=== PATIENT | male | born 1955 | race African-American/Black ===

== ENCOUNTER 2022-04-02 05:36 | Day surgery (SDC) | payer BC ==
[2022-03-31 16:23] VITALS: BMI 26.5
[2022-04-02 06:34] LABS: #Eosinphils 0.1 thou/uL (0.0-0.7); #Lymphocytes 1.5 thou/uL (1.20-3.40); #Monocytes 0.6 thou/uL (0.11-0.59); #Neutrophils 3.1 thou/uL (1.40-6.50); %Basophils 0.3 % (0.0-1.0); %Eosinophils 2.7 % (0.0-10.0); %Lymphocytes 29.1 % (21.0-51.0); %Monocytes 10.6 % (0.0-10.0); %Neutrophils 57.3 % (42.0-75.0); Mean Corpuscular Hemoglobin 28.9 pg (27.0-31.0); Mean Corpuscular Volume 93.2 fL (78.0-98.0); Mean Platelet Volume 8.4 fL (7.4-10.4); Platelet Count 280 thou/uL (130-400); RBC Distribution Width 13.1 % (11.5-14.5); White Blood Cell (WBC) Count 5.3 thou/uL (4.8-10.8)
[2022-04-02 06:41] LABS: INR-International Normal Ratio 0.9; Prothrombin Time 12.3 sec (12.0-14.7)
[2022-04-02 06:42] LABS: PTT 32.7 sec (22.9-36.1)
[2022-04-02] MEDS ORDERED: Levofloxacin 500 mg/D5W 100 ml Premix Bag ONE (06:46)
[2022-04-02 06:50] LABS: Squamous Epithelial 0-3 HPF (0-3)
[2022-04-02 06:50] LABS: Anion Gap 11 mmol/L (10-20); BUN (Urea Nitrogen) 13 mg/dL (8.4-25.7); Calc. Creatinine Clearance 94 mL/min (70-130); Calcium 9.2 mg/dL (7.8-10.44); Carbon Dioxide 28 mmol/L (23-31); Chloride 104 mmol/L (98-107); Estimated GFR 92; Glucose 93 mg/dL (80-115); Potassium 3.4 mmol/L (3.5-5.1); Sodium 140 mmol/L (136-145)
[2022-04-02] MEDS ORDERED: fentaNYL Citrate/PF 100 MCG/2 ML SYRINGE ONE (07:18)
[2022-04-02 07:34] LABS: Bacteria/HPF 2+ HPF (None Seen); WBC/HPF 21-50 HPF (0-3)
[2022-04-02] MEDS ORDERED: PROPOFOL 200 MG/20 ML VIAL ONE (07:39)
[2022-04-02] MEDS ORDERED: Lidocaine 1% MPF 2 ML VIAL ONE (07:39)
[2022-04-02] MEDS ORDERED: B & O ONE (08:05)
[2022-04-02] MEDS ORDERED: Phenazopyridine HCl 100 MG TAB ONE (08:54)
[2022-04-02] MEDS ORDERED: Morphine 2 MG/ML VIAL ONE (08:54)
[2022-04-02] MEDS ORDERED: Oxybutynin 5 MG TAB ONE (08:54)
[2022-04-02] MEDS ORDERED: hydrALAZINE 20 MG/ML VIAL ONE (09:18)
[2022-04-02] MEDS ORDERED: Morphine 4 MG/ML VIAL ONE (09:19)
[2022-04-02] MEDS ORDERED: HYDROcodone/Acetaminophen 5/325 mg Tablet ONE (09:43)
== END 2022-04-02 10:25 | disposition home or self-care (01) ==
LOC: SDC 05:36
PROVIDERS: ATTEND Urology
PROC: 0T7D8DZ Dilation of Urethra with Intraluminal Device, Via Natural or Artificial Opening Endoscopic (ICD-10-PCS; principal; 2022-04-02)
DX: C61 Malignant neoplasm of prostate (principal); N39.41 Urge incontinence; N32.0 Bladder-neck obstruction; R35.0 Frequency of micturition; R39.12 Poor urinary stream; R31.0 Gross hematuria; I11.9 Hypertensive heart disease without heart failure; E78.00 Pure hypercholesterolemia, unspecified
CPT/HCPCS: 36415; 80048; 81015; 85025; 85610; 85730; 87077; 87086; 87186; 93005; 93010; J0360; J1956; J2270; L8699